=== PATIENT | male | born 1945 | race Caucasian/White ===

== ENCOUNTER → 2016-05-18 | Outpatient (CLI) | payer MEDICARE, OTHER ==
[~2016-05-18] MED LIST: ALLOPURINOL300 MG PO; CERTAGEN PO; CLARITIN10 M2 PO; FIBERCON625 MG; FLEXERIL PO; FLONASE ALLERG9.9 ML; FLONASE16 GM; HCTZ PO; KCL PO; KEFLEX PO; LIPITOR20 MG PO; LORTAB 7.5-5001 TAB PO; MEDROL PO; METOPROLOL TAR25 MG; MULTI-VITAMIN1 EAC1 PO; MULTI-VITAMIN1 TAB; NEXIUM PO; POTASSIUM CHLO10 ME1 PO; PROTONIX; UROXATRAL10 MG PO; VEGETABLE LAXA390 GM; VICODIN 5/500 T1 TAB PO; XARELTO20 MG PO
--- NOTE | ~2016-05-18 | MR43 ---
[facility] A Service of [facility] & [facility] RADIOLOGY TEXT RESULTS PATIENT: NESTOR BELL LOCATION: [facility] : 43 UNIT #: [id number] AGE: [address]: Marquis Thomason MD SEX: M ORDER DR: [id number] [address] [address] [id number] MR#: [id number] Acc #: [id number] NAME: NESTOR BELL : 1945 SEX: M STUDY DATE/TIME: 05/18/2016 8:54 UNIT: [facility] ROOM: STUDY DESCRIPTION: MR Elbow Wo Contrast Rt Attending Physician: Marquis Thomason M.D. Referring Physician: Marquis Thomason M.D. Ordering Physician: Marquis Thomason M.D. Primary Care Physician: Bridger Hearn M.D. MRI CENTER REPORT This report is preliminary unless electronic signature is present. EXAM MRI of the right elbow without contrast 05/18/2016. COMPARISON Right elbow radiographs 04/03/2016 HISTORY Order states MRI right elbow without contrast. Include a FABS view, right elbow fossa pain. Possible radial bicipital bursitis, biceps tendinosis. History sheet states status post injury January 2016, moving grocery carts and ? hyper-extended the elbow. Persistent right elbow pain since January 2016. No injections and no related surgery. FINDINGS There is no effusion, fracture, chondral/osteochondral lesion, or loose body identified. Tiny synovial or ganglion cyst just anterior to the radial neck is of doubtful significance. The ulnar collateral ligament and pronator teres/flexor tendon complex medially are normal. The lateral collateral ligament complex and common extensor tendon are within normal limits. The brachialis and triceps tendons are normal. There is no evidence of bicipito-radial bursitis. The predominant abnormality is high-grade preinsertional tendinosis and small pre insertional partial tear of the biceps brachii tendon. The partial insertional tear measures 7 x 5 mm (craniocaudal by transverse) and is less than 50% of the tendon thickness. There is no detachment or retraction. STS. [facility] A Service of [facility] & [facility] RADIOLOGY TEXT RESULTS PATIENT: NESTOR BELL LOCATION: [facility] : 43 UNIT #: [id number] AGE: [address]: Marquis Thomason MD SEX: M ORDER DR: Muscles are normal. The biceps tendon pathology measures 3.9 cm in length. IMPRESSION 1. 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 At the pre insertional segment, there is marked tendinopathy with a partial pre-insertional 7 x 5 mm tear estimated at less than 50% in tendon thickness. There is no detachment or retraction. 2. There is no evidence of bicipito-radial bursitis. 3. No internal derangement of the elbow joint. Dictated by... Eboni Moss M.D. THIS IS AN ELECTRONICALLY VERIFIED REPORT Eboni Moss M.D. at 05/21/2016 1:08 PM C/to TD: 05/21/2016 11:42 JOB #: [id number] MRI CENTER REPORT Page 1 of 1
== END | disposition home or self-care (01) ==
LOC: SMRI 08:10
DX: M25.521 Pain in right elbow (principal); S46.811A Strain of other muscles, fascia and tendons at shoulder and upper arm level, right arm, initial encounter; M75.21 Bicipital tendinitis, right shoulder
CPT/HCPCS: 73221